=== PATIENT | female | born 1975 | race Caucasian/White ===

== ENCOUNTER → 2017-10-29 | Outpatient (CLI) | payer BC | LOC: LAB 13:55 | PROVIDERS: Hospitalist | DX: Z12.4 Encounter for screening for malignant neoplasm of cervix (principal) | CPT/HCPCS: G0145 ==

== ENCOUNTER 2018-04-20 01:15 | Emergency (ER) | payer BC ==
[~2018-04-20] VITALS: Ht 160 cm; Wt 51.7 kg
== END 2018-04-20 02:39 | disposition home or self-care (01) ==
LOC: ER 01:15
DX: R11.2 Nausea with vomiting, unspecified (principal); Z91.040 Latex allergy status; Z88.8 Allergy status to other drugs, medicaments and biological substances
CPT/HCPCS: 36415; 96361; 96374; 96375; 99283-25; J1200; J1630; J7030

== ENCOUNTER → 2018-06-05 | Outpatient (CLI) | payer BC ==
[2018-06-06 15:08] LABS: HPV 16 Negative (Negative); HPV 18 Negative (Negative); HPV OTHER HR TYPES Negative (Negative)
== END | disposition home or self-care (01) ==
LOC: LAB 11:45 → LAB SHORT 11:45
PROVIDERS: Hospitalist
DX: R87.89 Other abnormal findings in specimens from female genital organs (principal)
CPT/HCPCS: 87624; 88175

== ENCOUNTER → 2020-06-29 | Outpatient (CLI) | payer BC | END | disposition home or self-care (01) | LOC: OLS 08:55 → LAB SHORT 08:55 | PROVIDERS: Hospitalist | DX: Z12.4 Encounter for screening for malignant neoplasm of cervix (principal) | CPT/HCPCS: G0145 ==